=== PATIENT | female | born 1995 | race Two or more races ===

== ENCOUNTER 2021-08-16 07:10 | Inpatient (IN) | payer BC ==
[2021-08-16] MEDS ORDERED: Ondansetron 4 MG/2 ML SDV IVPUSH PRN (08:05)
[2021-08-16] MEDS ORDERED: Methylergonovine 0.2 MG/1 ML Amp IM PRN (08:05)
[2021-08-16] MEDS ORDERED: Sodium Chloride 0.9% 10 ML Syringe FLUSH PRN (08:05)
[2021-08-16] MEDS ORDERED: Sodium Chloride 0.9% 2.5 ML Syringe FLUSH PRN (08:05)
[2021-08-16] MEDS ORDERED: Misoprostol 200 MCG Tab PO PRN (08:05)
[2021-08-16] MEDS ORDERED: Sodium Chloride 0.9% 20 ML SDV IV PRN (08:05)
[2021-08-16] MEDS ORDERED: Water For Irrigation,Sterile 1,000 ML Container IRR PRN (08:05)
[2021-08-16] MEDS ORDERED: Carboprost Tromethamine 250 MCG/1 ML Amp IM PRN (08:05)
[2021-08-16] MEDS ORDERED: Butorphanol 1 MG/ML SDV IVPUSH PRN (08:05)
[2021-08-16] MEDS ORDERED: Tranexamic Acid 1,000 MG in Sodium Chloride 0.9% 100 ML IV PRN ×2 (08:05→13:34)
[2021-08-16] MEDS ORDERED: Lidocaine 1% 50 ML MDV INJECT PRN (08:05)
[2021-08-16] MEDS ORDERED: Oxytocin/0.9 % Sodium Chloride 30 UNIT/500 ML BAG IV SCH (08:15)
[2021-08-16] MEDS: Lactated Ringers 1,000 ML IV SCH ×3 (08:30→11:07)
[2021-08-16] MEDS ORDERED: Labetalol 100 MG/20 ML MDV IVPUSH ONE (09:24)
[2021-08-16] MEDS ORDERED: Ropivacaine 100 ML ONE ×2 (09:24→09:28)
[2021-08-16] MEDS ORDERED: fentaNYL 100 MCG/2 ML SDV ONE ×2 (09:36)
[2021-08-16] MEDS ORDERED: Ondansetron 4 MG/2 ML SDV ONE (09:36)
[2021-08-16] MEDS ORDERED: ePHEDrine 50 MG/ML SDV IVPUSH PRN ×2 (09:46)
[2021-08-16] MEDS ORDERED: Ropivacaine 200 MG in Premix Bag 1 BAG EPIDUR SCH (10:00)
[2021-08-16] MEDS ORDERED: Lidocaine 2% with EPINEPHrine 1:200,000 20 ML SDV ONE (10:15)
[2021-08-16] MEDS ORDERED: Ibuprofen 400 MG Tab PO PRN (13:34)
[2021-08-16] MEDS ORDERED: Ibuprofen 800 MG Tab PO PRN (13:34)
[2021-08-16] MEDS ORDERED: Witch Hazel Medicated Pads 40/Jar TOP PRN (13:34)
[2021-08-16] MEDS ORDERED: Bisacodyl 10 MG Supp RECTAL PRN (13:34)
[2021-08-16] MEDS ORDERED: Benzocaine/Menthol 20%-0.5% Spray 78 GM Cannister TOP PRN (13:34)
[2021-08-16] MEDS ORDERED: Acetaminophen 500 MG Tab PO PRN ×2 (13:34)
[2021-08-16] MEDS ORDERED: Docusate Sodium 100 MG Cap PO PRN (13:34)
[2021-08-16] MEDS ORDERED: Lanolin 100% Cream 7 GM Tube TOP PRN (13:34)
[2021-08-17 05:55] LABS: BLOOD UREA NITROGEN,BUN 8 mg/dL (7.0-18.0); CARBON DIOXIDE,CO2 23.9 mmol/L (21.0-32.0); CHLORIDE,CL 107 mmol/L (98-107); GLUCOSE RANDOM 96 mg/dL (74-106); POTASSIUM,K 3.6 mmol/L (3.5-5.1); SODIUM,NA 140 mmol/L (136-145)
== END 2021-08-18 12:45 | disposition home or self-care (01) | DRG 560 ==
LOC: MW.OBCHECK 07:10 → MW.OB 07:11 → MW.OBCHECK 08:05 → OBSVTOIN 12:38 → MW.OB 17:18
PROVIDERS: ADMIT Obstetrics & Gynecology; ATTEND Obstetrics & Gynecology
PROC: 10E0XZZ Delivery of Products of Conception, External Approach (ICD-10-PCS; principal; 2021-08-16)
PROC: 0KQM0ZZ Repair Perineum Muscle, Open Approach (ICD-10-PCS; 2021-08-16)
PROC: 3E0R3BZ Introduction of Anesthetic Agent into Spinal Canal, Percutaneous Approach (ICD-10-PCS; 2021-08-16)
PROC: 00HU33Z Insertion of Infusion Device into Spinal Canal, Percutaneous Approach (ICD-10-PCS; 2021-08-16)
DX: O24.420 Gestational diabetes mellitus in childbirth, diet controlled (principal); Z37.0 Single live birth; O77.0 Labor and delivery complicated by meconium in amniotic fluid; O70.0 First degree perineal laceration during delivery; O13.4 Gestational [pregnancy-induced] hypertension without significant proteinuria, complicating childbirth; Z20.822 Contact with and (suspected) exposure to COVID-19; Z3A.39 39 weeks gestation of pregnancy
CPT/HCPCS: 36415; 51702; 59025; 59409; 80048; 82803; 82947; 84112; 85014; 85018; 85027; 86592; 86850; 86900; 86901; A9270-GY; J2405; J2590; J2795; J3010; J7120; U0002